=== PATIENT | male | born 1930 | race Caucasian/White ===

== ENCOUNTER 2017-05-24 20:05 | Emergency (ER) | payer MEDICARE ==
[~2017-05-24] VITALS: Ht 185.4 cm; Wt 77.3 kg
[2017-05-24] MEDS ORDERED: LACT1CAP62 PO (20:31)
[2017-05-24] MEDS ORDERED: LOVA20 PO (20:31)
[2017-05-24] MEDS ORDERED: CITA10TA68 PO (20:31)
[2017-05-24] MEDS ORDERED: DOXY100C PO (20:31)
[2017-05-24] MEDS ORDERED: QUET25TA PO (20:31)
[2017-05-24] MEDS ORDERED: TIOT185 IH (20:31)
[2017-05-24] MEDS ORDERED: CETI-290 PO (20:31)
[2017-05-24] MEDS ORDERED: MEMA28CA5 PO (20:31)
[2017-05-24] MEDS ORDERED: ASPI81 PO (20:31)
[2017-05-24 23:30] VITALS: BP 122/76
[2017-05-24] MEDS ORDERED: PERTUSS(ACELL),DIPH,TET VAC/PF 0.5 ML VIAL IM ONE (23:30)
== END 2017-05-24 23:50 | disposition home or self-care (01) ==
LOC: EMS 20:08
DX: S09.90XA Unspecified injury of head, initial encounter (principal); M54.5 Low back pain; I10 Essential (primary) hypertension; J44.9 Chronic obstructive pulmonary disease, unspecified; W06.XXXA Fall from bed, initial encounter; Y93.89 Activity, other specified; Y92.89 Other specified places as the place of occurrence of the external cause; Y99.8 Other external cause status
CPT/HCPCS: 70450; 73521; 82962; 90471; 90715; 99284